=== PATIENT | female | born 1970 | race Caucasian/White ===

== ENCOUNTER 2018-03-19 06:31 | Day surgery (SDC) | payer OTHER ==
[2018-03-14 12:58] VITALS: BMI 29.6
[2018-03-19 06:54] VITALS: TEMP 98.1
[2018-03-19] MEDS ORDERED: LIDOCAINE 1%/EPI 1:100000 (20 ML MULTI DOSE VIAL) ONE (07:26)
[2018-03-19] MEDS ORDERED: SODIUM CHLORIDE 0.9% P/F 10 ML VIAL IJ ONE (07:26)
[2018-03-19] MEDS ORDERED: BUPIVACAINE HCL/PF 0.5% (5MG/ML) 10 ML VIAL ONE ×2 (07:26→07:28)
[2018-03-19] MEDS ORDERED: DEXAMETHASONE SOD PHOSPHATE 4 MG/1 ML VIAL ONE ×2 (07:51→08:18)
[2018-03-19] MEDS ORDERED: ONDANSETRON 4 MG/2 ML VIAL ONE ×2 (07:51→08:18)
[2018-03-19] MEDS ORDERED: fentaNYL CITRATE 250 MCG/5 ML VIAL ONE (07:51)
[2018-03-19] MEDS ORDERED: MIDAZOLAM HCL 2 MG/2 ML SINGLE DOSE VIAL ONE (07:51)
--- NOTE | 2018-03-19 07:54 | HP ---
[facility]ellite H - Chief Complaint Chief Complaint: left knee pain - Past Medical History Allergies/Adverse Reactions: Allergies Allergy/AdvReac Type Severity Reaction Status Date / Time No Known Allergies Allergy Verified 03/14/18 12:58 ...LMP Comment: 03/13/18 - Current Medications Current Medications: Home Medications Medication Instructions Recorded Multivitamins [Multivit ([facility] 1 tab PO DAILY 03/14/18 Formulary)] Acetaminophen [Tylenol 1,000 mg PO ONCE 03/19/18 .Extra-Strength -] Oxycodone HCl/Acetaminophen 1 - 2 tab PO Q6H #30 tab MDD 8 03/19/18 [Percocet 5-325 mg Tablet -] Satellite Physical Exam - Physical Examination Vital Signs: Vital Signs Period Temp Pulse Resp BP Sys/Strange Pulse Ox Last 24 Hr 98.1 F 83 15 123/81 94 General Appearance: Well Nourished, Well Developed, Alert & Oriented x3 ENT: Clear Lung: Normal air movement Heart: Regular rate & rhythm Extremities: Other (left knee- + swelling, + ttp medially, decr rom, + mcmurrays , nvi MRI + mmt) Neurological: Intact, Alert, Oriented Satellite Impression/Plan - Impression/Plan Impression: left knee mmt Operative Procedure: left knee arthroscopy Date to be Performed: 03/19/18
[2018-03-19] MEDS ORDERED: ONDANSETRON 4 MG/2 ML VIAL IVPUSH PRN (08:46)
[2018-03-19] MEDS ORDERED: oxyCODONE HCL 5 MG TABLET PO PRN ×2 (08:46)
[2018-03-19] MEDS ORDERED: LACTATED RINGERS SOLUTION 1,000 ML IV SCH (09:00)
[2018-03-19 10:05] VITALS: BP 125/72; PULSE 76
--- NOTE | 2018-03-19 12:15 | OP ---
DATE OF OPERATION: 03/19/2018 PREOPERATIVE DIAGNOSIS: Internal derangement, right knee. POSTOPERATIVE DIAGNOSIS: Internal derangement, right knee. PROCEDURE: Arthroscopy, right knee, partial medial meniscectomy, and chondroplasty of the medial femoral condyle. SURGICAL ATTENDING: Walker Landers MD ANESTHESIA: LMA. CLOSURE: 4-0 nylon. COMPLICATIONS: None. CONDITION: To recovery room in stable condition. DESCRIPTION OF OPERATIVE PROCEDURE: Patient was taken to the operating room on 2017. General anesthesia with LMA was administered by the anesthesiologist. Right lower extremity was prepped and draped in the usual sterile fashion. The medial and lateral infrapatellar portal sites were then infiltrated with 1% Xylocaine with epinephrine. The medial and lateral portals were made with a 15-blade followed by blunt trocar. The scope was placed in the lateral infrapatellar portal and up into the suprapatellar pouch. The knee was inflated with cocktail 10 mL of 1% Xylocaine, 10 mL of 0.5% Marcaine, and 20 mL of arthroscopic saline. After allowing the cocktail to sit for a few minutes, we proceeded with the procedure. The undersurface of the patella and trochlea were visualized to be intact. The medial and lateral gutters were visualized to be intact. With valgus stress on the knee, the medial compartment was entered. The medial meniscus was visualized and found to have a complex tear on its posterior horn. This was debrided back to smooth, stable meniscal tissue with a meniscal biter and arthroscopic shaver. The medial femoral condyle was found to have essential area about the size of a nickel from about 30 to 50 degrees of flexion that had grade 3 changes, and any loose cartilage was debrided using the shaver. The rest of the cartilage looked intact. The medial femoral condyle looked intact, as well. At 90 degrees, the ACL was visualized, probed, and found to be intact. In the figure 4 position, the lateral compartment was entered. The lateral meniscus was visualized, probed, and found to be intact. The lateral femoral condyle was run and found to be intact as was the lateral tibial plateau. The knee was irrigated with copious amounts of irrigation. The portals were closed with 4-0 nylon. Prior to closure, 20 mL of 0.5% Marcaine was infused into the knee through the scope trocar for postoperative analgesia. A sterile pressure dressing was placed over the knee. Patient was awakened from anesthesia and transferred to recovery in stable condition. No complications. Estimated blood loss negligible. Poppy [id number]
--- NOTE | 2018-04-04 10:33 | OP ---
DATE OF OPERATION: 03/19/2018 PREOPERATIVE DIAGNOSIS: Internal derangement, left knee. POSTOPERATIVE DIAGNOSIS: Internal derangement, left knee. PROCEDURE: Arthroscopy, left knee, with partial medial meniscectomy, chondroplasty of the medial femoral condyle. SURGEON ATTENDING: Walker Landers M.D. ANESTHESIA: General LMA. CLOSURE: 4-0 nylon. COMPLICATIONS: None. CONDITION: To recovery room stable. DESCRIPTION OF PROCEDURE: The patient was taken to the operating room on March 19, 2018. General anesthesia along with LMA was administered by the anesthesiologist. Left lower extremity was prepped and draped in the usual sterile fashion. The medial and lateral infrapatellar portal sites were infiltrated with 1% Xylocaine with epinephrine. The medial and lateral portals were made with a 15-blade followed by blunt trocar. The scope was placed in the lateral infrapatellar portal and up into the suprapatellar pouch. The pouch was visualized to be clean. The knee was inflated with cocktail 10 mL of 1% Xylocaine, 10 mL of 0.5% Marcaine, and 20 mL of arthroscopic saline. After allowing the cocktail to sit for a few minutes, we proceeded with the procedure. The undersurface of the patella and trochlea were visualized to be intact. The medial and lateral gutters were visualized to be intact. With valgus stress on the knee, the medial compartment was entered. The medial meniscus was visualized and found to have a complex tear on its posterior horn. This was debrided back to smooth, stable meniscal tissue with using a meniscal biter and arthroscopic shaver. The medial femoral condyle was found to have grade 3 changes in and around the region of size of a nickel. A loose cartilage was debrided using the shaver. The rest of the cartilage looked intact. The medial tibial plateau was found to be intact. At 90 degrees, the ACL was visualized, probed, and found to be intact. In the figure 4 position, the lateral compartment was entered. The lateral meniscus was visualized, probed, and found to be intact. The lateral femoral condyle was run and found to be intact, as was the lateral tibial plateau. The knee was irrigated with copious amounts of irrigation. The portals were closed with 4-0 nylon. Prior to closure, 20 mL of 0.5% Marcaine was infused into the knee analgesia. Patient was awakened from anesthesia and transferred to recovery in stable condition. No complications. Estimated blood loss negligible. Poppy [id number]
== END 2018-03-19 09:40 | disposition home or self-care (01) ==
LOC: FASU 06:31
PROVIDERS: ATTEND Orthopaedic Surgery
PROC: 0SBC4ZZ Excision of Right Knee Joint, Percutaneous Endoscopic Approach (ICD-10-PCS; principal; 2018-03-19 08:12)
DX: M23.221 Derangement of posterior horn of medial meniscus due to old tear or injury, right knee (principal)
CPT/HCPCS: 84703; 94760